=== PATIENT | female | born 1975 | race Caucasian/White ===

== ENCOUNTER 2024-07-20 09:25 | Outpatient (CLI) | payer BC, SELFPAY ==
[2024-07-20 14:56] LABS: Bacterial Vaginosis* POSITIVE (Negative); Candida glab/krus NOT DETECTED (No Detected); Candida species NOT DETECTED (No Detected); Trichomonas vaginalis NOT DETECTED (No Detected)
[2024-07-20 15:27] LABS: Chlamydia DNA Amplified* NOT DETECTED (No Detected); GC DNA Amplified* NOT DETECTED (No Detected)
== END 2024-07-20 09:26 | disposition home or self-care (01) ==
PROVIDERS: PCP Family Medicine; Visit Provider Obstetrics & Gynecology
DX: Z01.419 Encounter for gynecological examination (general) (routine) without abnormal findings (principal); Z11.3 Encounter for screening for infections with a predominantly sexual mode of transmission
CPT/HCPCS: 80076; 81513; 86592; 86703; 86803; 87340; 87481; 87491; 87591; 87624; 87661

== ENCOUNTER 2024-07-21 09:50 | Outpatient (CLI) | payer BC, SELFPAY | END 2024-07-21 09:51 | disposition home or self-care (01) | PROVIDERS: PCP Family Medicine; Visit Provider Obstetrics & Gynecology | DX: R79.0 Abnormal level of blood mineral (principal) | CPT/HCPCS: 80076; 83540; 83550 ==